=== PATIENT | female | born 1965 | race Caucasian/White ===

== ENCOUNTER → 2023-04-21 | Outpatient (CLI) | payer OTHER | LOC: M RAD 16:38 | PROVIDERS: ATTEND Family Medicine | DX: Z12.2 Encounter for screening for malignant neoplasm of respiratory organs (principal); F17.210 Nicotine dependence, cigarettes, uncomplicated ==

== ENCOUNTER → 2023-08-26 | Outpatient (CLI) | payer OTHER | LOC: M RAD 10:24 | PROVIDERS: ATTEND Physician Assistant Medical | DX: R93.3 Abnormal findings on diagnostic imaging of other parts of digestive tract (principal); K76.0 Fatty (change of) liver, not elsewhere classified ==

== ENCOUNTER → 2023-09-01 | Outpatient (CLI) | payer OTHER | LOC: M CARPUL 08:57 | PROVIDERS: ATTEND Family Medicine | DX: I51.7 Cardiomegaly (principal) ==

== ENCOUNTER 2023-10-20 09:16 | Day surgery (SDC) | payer OTHER ==
[~2023-10-20] VITALS: Ht 165.1 cm; Wt 110.5 kg
[~2023-10-20 09:16] MED LIST: CALC600T60 PO; ERGO500029 PO; FURO20TA2 PO; HYDR-3490 PO; HYDR25TA87 PO; LISI20TA33 PO
[2023-10-20] MEDS ORDERED: propofoL 200 MG/20 ML VIAL As Ordered ONE (10:24)
[2023-10-20] MEDS ORDERED: LIDOCAINE 2% 100MG/5ML SDV (FOR ANES.) As Ordered ONE (10:24)
[2023-10-20] MEDS: NS 1,000 ML IV ONE (10:29)
[2023-10-20 11:38] VITALS: TEMP 97.5
[2023-10-20 11:55] VITALS: BP 120/59; O2SAT 98
== END 2023-10-20 12:05 | disposition home or self-care (01) ==
LOC: M OPP 09:16
PROVIDERS: ATTEND Internal Medicine Gastroenterology
DX: K63.5 Polyp of colon (principal); D12.0 Benign neoplasm of cecum; D12.2 Benign neoplasm of ascending colon; K64.8 Other hemorrhoids; K57.30 Diverticulosis of large intestine without perforation or abscess without bleeding; R19.4 Change in bowel habit; R93.3 Abnormal findings on diagnostic imaging of other parts of digestive tract; F17.200 Nicotine dependence, unspecified, uncomplicated; I10 Essential (primary) hypertension; Z79.899 Other long term (current) drug therapy

== ENCOUNTER 2024-09-13 09:30 | Day surgery (SDC) | payer OTHER ==
[~2024-09-13] VITALS: Ht 165.1 cm; Wt 123.6 kg
[~2024-09-13 09:30] MED LIST changes: +LISI10TA22 PO; +OMEG10002 PO; +PHENYLEPHRINE 10% OPHTH SOL 5ML OS PRN; +PROBCAP2 PO; +ROSU20TA86 PO
[2024-09-13] MEDS: OFLOXACIN 0.3 % (OCUFLOX) OPTH SOL 5ML OS ONE (10:45)
[2024-09-13] MEDS: LIDOCAINE 3.5 % 1ML OPHTH TOPICAL GEL OU ONE (10:45)
[2024-09-13] MEDS: CYCLOPENTOLATE 1% OPHTH SOLN 2ML BTL OS SCH (11:02)
[2024-09-13] MEDS: PHENYLEPHRINE 2.5% OPHTH SOL 2ML OS SCH (11:03)
[2024-09-13] MEDS: TROPICAMIDE 1% OPHTH SOLN 15ML OS SCH (11:03)
[2024-09-13] MEDS ORDERED: fentaNYL 250 MCG/5 ML INJECTION As Ordered ONE (11:34)
[2024-09-13] MEDS ORDERED: MIDAZOLAM INJ 2MG/2ML VIAL As Ordered ONE (11:34)
[2024-09-13] MEDS ORDERED: fentaNYL 100 MCG/2 ML INJECTION As Ordered ONE (11:35)
[2024-09-13] MEDS: BSS IRRIG/VANCO(10MG)/TOBRA(5MG)/EPINEPH(1:1000-0.5CC)500ML BAG-ORONLY As Ordered ONE (11:45)
[2024-09-13] MEDS: LIDOCAINE 1% SDV 5ML VIAL As Ordered ONE (11:45)
[2024-09-13] MEDS: CEFUROXIME 1MG/0.1ML INTRACAMERAL INJ As Ordered ONE (11:45)
[2024-09-13 11:58] VITALS: BP 133/78; TEMP 97.1; O2SAT 97
== END 2024-09-13 12:25 | disposition home or self-care (01) ==
LOC: M SDC 09:30
PROVIDERS: ATTEND Ophthalmology
DX: H25.12 Age-related nuclear cataract, left eye (principal); N28.9 Disorder of kidney and ureter, unspecified; E78.00 Pure hypercholesterolemia, unspecified; Z79.899 Other long term (current) drug therapy; Z87.891 Personal history of nicotine dependence
CPT/HCPCS: 66984; J0697; J2250; J3010; V2632

== ENCOUNTER 2024-09-27 08:54 | Day surgery (SDC) | payer OTHER ==
[~2024-09-27] VITALS: Ht 165.1 cm; Wt 123.8 kg
[~2024-09-27 08:54] MED LIST changes: +PHENYLEPHRINE 10% OPHTH SOL 5ML OD PRN; -PHENYLEPHRINE 10% OPHTH SOL 5ML OS PRN
[2024-09-27] MEDS ORDERED: MIDAZOLAM INJ 2MG/2ML VIAL As Ordered ONE (09:59)
[2024-09-27] MEDS ORDERED: fentaNYL 100 MCG/2 ML INJECTION As Ordered ONE (09:59)
[2024-09-27] MEDS: OFLOXACIN 0.3 % (OCUFLOX) OPTH SOL 5ML OD ONE (10:05)
[2024-09-27] MEDS: PHENYLEPHRINE 2.5% OPHTH SOL 2ML OD SCH (10:14)
[2024-09-27] MEDS: TROPICAMIDE 1% OPHTH SOLN 15ML OD SCH (10:14)
[2024-09-27] MEDS: LIDOCAINE 3.5 % 1ML OPHTH TOPICAL GEL OU ONE (10:14)
[2024-09-27] MEDS: CYCLOPENTOLATE 1% OPHTH SOLN 2ML BTL OD SCH (10:14)
[2024-09-27] MEDS: LIDOCAINE 1% SDV 5ML VIAL As Ordered ONE (11:40)
[2024-09-27] MEDS: BSS IRRIG/VANCO(10MG)/TOBRA(5MG)/EPINEPH(1:1000-0.5CC)500ML BAG-ORONLY As Ordered ONE (11:40)
[2024-09-27] MEDS: CEFUROXIME 1MG/0.1ML INTRACAMERAL INJ As Ordered ONE (11:40)
[2024-09-27 11:48] VITALS: BP 142/76; TEMP 96.9; O2SAT 96
== END 2024-09-27 12:07 | disposition home or self-care (01) ==
LOC: M SDC 08:54
PROVIDERS: ATTEND Ophthalmology
DX: H25.11 Age-related nuclear cataract, right eye (principal); I12.9 Hypertensive chronic kidney disease with stage 1 through stage 4 chronic kidney disease, or unspecified chronic kidney disease; N18.9 Chronic kidney disease, unspecified; E78.00 Pure hypercholesterolemia, unspecified; Z79.899 Other long term (current) drug therapy; Z98.42 Cataract extraction status, left eye
CPT/HCPCS: 66984; J0697; J2250; J3010; V2632